=== PATIENT | male | born 1980 | race Two or more races ===

== ENCOUNTER 2021-12-28 03:12 | Emergency (ER) | payer OTHER ==
[~2021-12-28] VITALS: Ht 170.2 cm; Wt 82.1 kg
--- NOTE | 2021-12-28 03:25 | NUR ---
bs 176
--- NOTE | 2021-12-28 03:34 | NUR ---
TO ER BED 9. BIBRA 86 C/O SEIZURE [id number] LKWT [id number]. PT IS IN POSTICTAL STATE. RR EVEN AND NON LABORED. SEIZURE PRECAUTIONS IN PLACE. CONNECTED TO MONITOR.
--- NOTE | 2021-12-28 04:04 | NUR ---
URINE SAMPLE COLLECTED
--- NOTE | 2021-12-28 04:17 | NUR ---
PT [id number].
--- NOTE | 2021-12-28 04:24 | NUR ---
UPDATED ROBERT (FRIEND) [phone]
[2021-12-28 04:35] LABS: BASOPHILS % (AUTO) 0.4 % (0.0-2.0); EOSINOPHILS % (AUTO) 2.6 % (0.0-6.0); HEMATOCRIT 43 % (39-51); HEMOGLOBIN 14.3 g/dL (13.5-17.5); LYMPHOCYTES # (AUTO) 5.7 K/uL (0.8-4.8); LYMPHOCYTES % (AUTO) 53.6 % (20.0-44.0); MEAN CORPUSCULAR HGB CONC 33 g/dl (31.0-36.0); MEAN CORPUSCULAR VOLUME 83 fL (80-96); MONOCYTES # (AUTO) 0.6 K/uL (0.1-1.30); MONOCYTES % (AUTO) 5.8 % (2.0-12.0); NEUTROPHILS % (AUTO) 37.6 % (43.0-81.0); PLATELET COUNT (AUTO) 241 K/uL (150-450); WHITE BLOOD COUNT (AUTO) 10.6 K/uL (4.3-11.0)
[2021-12-28 04:43] LABS: CALCIUM, SERUM 8.8 mg/dL (8.5-10.1); CARBON DIOXIDE 25 mmol/L (21-32); CHLORIDE 101 mmol/L (98-107); CREATININE 1.2 mg/dL (0.6-1.3); GLUCOSE 175 mg/dL (74-106); POTASSIUM 4.1 mmol/L (3.5-5.1); SODIUM SERUM 138 mmol/L (136-145); UREA NITROGEN, BLOOD 9 mg/dL (7-18)
[2021-12-28 04:49] LABS: ALANINE AMINOTRANSFERASE 31 U/L (12-78); ALBUMIN 3.7 g/dL (3.4-5.0); ALCOHOL, BLOOD < 3 mg/dL (0-0); ALKALINE PHOSPHATASE 87 U/L (46-116); ASPARTATE AMINOTRANSFERASE 10 U/L (15-37); BILIRUBIN,DIRECT 0.1 mg/dL (0.0-0.2); BILIRUBIN,TOTAL 0.4 mg/dL (0.2-1.0); TOTAL PROTEIN, SERUM 7.6 g/dL (6.4-8.2)
[2021-12-28] MEDS ORDERED: LEVE500T9 PO (05:02)
[2021-12-28 05:43] VITALS: BP 124/70
--- NOTE | 2021-12-28 05:43 | NUR ---
Patient discharged to home in stable condition. Written and verbal after care instructions given. Patient verbalizes understanding of instruction.
== END 2021-12-28 05:43 | disposition home or self-care (01) ==
LOC: EDBD 03:14 → ER 03:14
DX: G40.909 Epilepsy, unspecified, not intractable, without status epilepticus (principal); M25.512 Pain in left shoulder; Z79.899 Other long term (current) drug therapy
CPT/HCPCS: 36415; 70450-TC; 71045-TC; 73030-TC; 80048-TC; 80076-TC; 82962-TC; 85025-TC; 85730-TC; G0480